=== PATIENT | female | born 1990 | race African-American/Black ===

== ENCOUNTER 2017-07-09 02:22 | Emergency (ER) | payer MEDICAID ==
[~2017-07-09] VITALS: Ht 157.5 cm; Wt 72.6 kg
[2017-07-09] MEDS ORDERED: ALBUTEROL2.5 MG/3 M INH (02:26)
--- NOTE | 2017-07-09 02:29 | Emergency Room Report ---
History of Present Illness General Chief Complaint: Dyspnea/Respdistress Source: Patient Present Illness HPI Is a 26-year-old female with history of asthma. She gets infrequent exacerbation. Last one was a year ago. Whole family has been sick with flulike illness will week. Today she has some congestion runny nose. She woke up tonight with chief complaint of high fever, sore throat, coughing and wheezing and chest tightness. Also with generalized body pain. She felt very sick and call 911. They gave her a breathing treatment. She felt better from the wheezing 10 point. No nausea no vomiting. Fever of 102 upon awakening. Allergies: Coded Allergies: Asparagus (Verified Allergy, Unknown, 07/09/17) PEACH (Verified Allergy, Unknown, 07/09/17) Uncoded Allergies: peanut butter (Allergy, Unknown, 07/09/17) Patient History Past Medical History: see triage record, old chart reviewed, asthma Past Surgical History: none Pertinent Family History: none Social History: Denies: smoking Last Menstrual Period: 185 Now: No Immunizations: other Reviewed Nursing Documentation: PMH: Agreed, PSxH: Agreed Nursing Documentation-PMH Past Medical History: No History, Except For Hx Asthma: Yes Review of Systems Constitutional: Reports: fever, malaise Eye: Denies: eye pain, blurred vision ENT: Reports: nose congestion, throat pain Respiratory: Reports: cough, shortness of breath, wheezing Cardiovascular: Denies: chest pain, palpitations Gastrointestinal: Denies: abdominal pain, diarrhea, nausea, vomiting Musculoskeletal: Reports: back pain Skin: Denies: rash Neurological: Denies: headache, numbness Endocrine: Denies: increased thirst, increased urine Hematologic/Lymphatic: Denies: easy bruising All Other Systems: negative except mentioned in HPI Physical Exam Vital Signs Date Time Temp Pulse Resp B/P (MAP) Pulse Ox O2 Delivery O2 Flow Rate FiO2 07/09/17 02:21 102.6 120 15 140/77 99 Room Air vitals with a fever Sp02 EP Interpretation: reviewed, normal General Appearance: well appearing, no apparent distress, alert Head: normocephalic, atraumatic Eyes: bilateral eye PERRL, bilateral eye EOMI ENT: hearing grossly normal, normal pharynx Neck: full range of motion, supple, no meningismus Respiratory: chest non-tender, lungs clear, normal breath sounds Cardiovascular #1: regular rate, rhythm, no murmur Gastrointestinal: normal bowel sounds, non tender, no mass, no organomegaly, no bruit, non-distended Musculoskeletal: back normal, gait/station normal, normal range of motion Psychiatric: mood/affect normal Skin: warm/dry Medical Decision Making Diagnostic Impression: Primary Impression: Influenza-like illness Additional Impressions: UTI (urinary tract infection) Qualified Codes: N30.00 - Acute cystitis without hematuria Asthma attack Qualified Codes: J45.901 - Unspecified asthma with (acute) exacerbation ER Course Patient presents with influenza-like illness. Because of her asthma, will put her on Tamiflu. She is diffuse back and body pain. No CVA tenderness. Urine positive. We'll put on antibiotics. No evidence of sepsis, meningitis for pyelonephritis. Last Vital Signs Date Time Temp Pulse Resp B/P (MAP) Pulse Ox O2 Delivery O2 Flow Rate FiO2 07/09/17 02:21 102.6 120 15 140/77 99 Room Air Status: improved Disposition: HOME, SELF-CARE Condition: Stable Scripts Oseltamivir Phosphate (Tamiflu) 75 Mg Capsule 75 MG ORAL TWICE A DAY, #10 CAP Prov: YARITZA CALDERON M.D. 07/09/17 Ibuprofen* (MOTRIN*) 600 Mg Tablet 600 MG ORAL Q8H Y for For Pain, #30 TAB 0 Refills Prov: YARITZA CALDERON M.D. 07/09/17 Cephalexin* (KEFLEX*) 500 Mg Capsule 500 MG ORAL TID, #21 CAP 0 Refills Prov: YARITZA CALDERON M.D. 07/09/17 Albuterol Sulfate* (ALBUTEROL SULFATE MDI*) 8.5 Gm Hfa.aer.ad 2 PUFF INH Q4H Y for cough/wheezing, #1 EA 0 Refills Prov: YARITZA CALDERON M.D. 07/09/17 Additional Instructions: Followup with your DrNikki in 3-5 days. Return if symptom worsen. YARITZA CALDERON M.D. Jul 09, 2017 02:29
[2017-07-09 02:30] VITALS: BP 138/76
[2017-07-09] MEDS ORDERED: Solu-MEDROL 125mg Inj IVP ONE (02:30)
[2017-07-09] MEDS ORDERED: Acetaminophen 500mg (ES) tab ORAL ONE (02:30)
[2017-07-09] MEDS ORDERED: Ketorolac 30mg Inj IV ONE (02:30)
[2017-07-09 02:56] LABS: APPEARANCE,URINE CLEAR; BILIRUBIN, URINE NEGATIVE (NEGATIVE); COLOR,URINE PALE YELLOW; GLUCOSE, URINE (UA) NEGATIVE (NEGATIVE); KETONES,URINE NEGATIVE (NEGATIVE); NITRITE,URINE NEGATIVE (NEGATIVE); PH,URINE 8 (4.5-8.0); PROTEIN,URINE NEGATIVE (NEGATIVE); UROBILINOGEN,URINE NORMAL MG/DL (0.0-1.0)
[2017-07-09 02:58] LABS: LEUKOCYTE ESTERASE ,URINE 2+ (NEGATIVE)
[2017-07-09] MEDS ORDERED: IBUPROFEN600 MG ORAL (03:10)
[2017-07-09] MEDS ORDERED: KEFLEX500 MG ORAL (03:10)
[2017-07-09] MEDS ORDERED: ALBUTEROL SULF8.5 GM INH (03:10)
[2017-07-09] MEDS ORDERED: TAMIFLU75 MG ORAL (03:10)
[2017-07-09] MEDS ORDERED: cefTRIAXone 1 GM in NS 55 ML IVPB ONE (03:15)
[2017-07-09 03:50] VITALS: BP 130/78
[2017-07-09 04:14] VITALS: BP 130/78
== END 2017-07-09 04:00 | disposition home or self-care (01) ==
LOC: EDBD 02:22 → EMR 02:36
DX: J45.901 Unspecified asthma with (acute) exacerbation (principal); N30.00 Acute cystitis without hematuria; J11.1 Influenza due to unidentified influenza virus with other respiratory manifestations; Z91.013 Allergy to seafood
CPT/HCPCS: 81003; 81025; 87086; 87181; 96361; 96365; 96375; 99284; J0696; J1885; J2930